=== PATIENT | female | born 1940 | race Caucasian/White ===

== ENCOUNTER 2016-09-17 14:15 | Emergency (ER) | payer OTHER, MEDICARE ==
[~2016-09-17] VITALS: Ht 170.2 cm; Wt 78.0 kg
[~2016-09-17 14:15] MED LIST: FLU VACCINE 0.0.5 ML IM; PREDNISONE10 MG PO; VALTREX1 GM PO; [UNRECOGNIZED DRUG - CODE] SC
--- NOTE | 2016-09-17 14:59 | ED GENERAL ADULT ---
History of Present Illness General Chief Complaint: General Adult Stated Complaint: PT FROM [facility] FOR ?HYPERTENSION Source: patient Exam Limitations: no limitations Vital Signs & Intake/Output Vital Signs & Intake/Output Vital Signs Date Time Temp Pulse Resp B/P Pulse O2 O2 Flow FiO2 Ox Delivery Rate 09/17 1549 148/92 09/17 1422 97.0 98 20 149/94 98 Room Air Allergies Coded Allergies: No Known Allergies (09/17/16) Reconcile Medications Amlodipine Besylate 5 MG TABLET 1 TAB PO DAILY HYPERTENSION Triage Note: PT SIB [facility] FOR HTN. PT STATES SHE STOPPED TAKING HER BP MEDS 6-7 MONTHS AGO BECAUSE SHE FELT FINE Triage Nurses Notes Reviewed? yes Onset: Gradual Duration: better Timing: recent history Severity: moderate Severity Numbers: 5 No Modifying Factors: none HPI: Patient is a 75-year-old female with a past medical history of hypertension who states that approximate 6 months ago patient was prescribed (although patient does not remember the exact medication) pharmacy reconciliation notes that patient was given amlodipine 5 mg for her blood pressure however she decided not to take this and has been unmedicated for 6 months. Patient states that she was seen in urgent care facility today for acute onset of mild sore throat that began yesterday in which the rapid strep was negative however patient was noted to have elevated blood pressure noted to be over 200/100. Patient does state that she woke up with a headache however took Tylenol with relief of headache symptoms. Patient also states for the past few weeks she's been complaining of intermittent dyspnea on exertion. Patient denies currently any fever chills headache blurred vision neck pain neck stiffness, cough hemoptysis or chest pain leg swelling history of DVT or PE. (ROYCE SALGUERO) Past History Travel History Traveled to [place] past 21 day No Medical History Any Pertinent Medical History? see below for history Cardiovascular: hypertension Surgical History Surgical History: non-contributory Psychosocial History What is your primary language Surinamese Tobacco Use: Quit >30 days ago ETOH Use: denies use Illicit Drug Use: denies illicit drug use Family History Hx Contributory? No (ROYCE SALGUERO) Review of Systems Review of Systems Constitutional: Reports: no symptoms. EENTM: Reports: no symptoms. Respiratory: Reports: see HPI, short of breath. Cardiovascular: Reports: no symptoms. GI: Reports: no symptoms. Genitourinary: Reports: no symptoms. Musculoskeletal: Reports: no symptoms. Skin: Reports: no symptoms. Neurological/Psychological: Reports: see HPI, headache. Hematologic/Endocrine: Reports: no symptoms. Immunologic/Allergic: Reports: no symptoms. All Other Systems: Reviewed and Negative (ROYCE SALGUERO) Physical Exam Physical Exam General Appearance: no apparent distress, alert Comments: Well-developed well-nourished person in no acute distress HEENT: Normal EENT exam, extraocular motion intact, no nystagmus. Pupils equally round and reactive to light and accommodation. Nose is atraumatic. External auditory canal and Tympanic membranes clear. Pharynx normal. No swelling or edema. Neck: Supple, no lymphadenopathy, normal range of motion without pain or tenderness Back: Nontender, no CVA tenderness. Cardiovascular: Regular rate and rhythms no murmurs rubs or gallops, normal JVP Respiratory: Chest nontender. No respiratory distress.breath sounds clear to auscultation bilaterally Abdomen: Soft, nontender nondistended, no appreciable organomegaly. Normal bowel sounds. No ascites Extremity: No edema, no calf tenderness to palpation, normal and equal pulses. Neuro: Alert oriented x3, motor sensory normal, cranial nerves II through XII grossly intact. Skin: No appreciable rash on exposed skin, skin is warm and dry. Psych: Mood and affect is normal, memory and judgment is normal. Core Measures ACS in differential dx? No CVA/TIA Diagnosis: No Severe Sepsis Present: No Septic Shock Present: No (ROYCE SALGUERO) Progress Differential Diagnoses I considered the following diagnoses in my evaluation of the patient: [ Hypertensive urgency, hypertensive emergency, hypertension, TIA, CVA, myocardial infarction, CHF, PE, electrolyte abnormality, kidney injury, DVT] Plan of Care: Orders Procedure Date/time Status Telemetry/Coloring Checker 09/17 1507 Active TROPONIN LEVEL 09/17 1507 Complete COMPREHENSIVE METABOLIC PANEL 09/17 1507 Complete CBC WITHOUT DIFFERENTIAL 09/17 1507 Complete B-TYPE NATRIURETIC PEP (BNP) 09/17 1507 Complete EKG 09/17 1507 Active Laboratory Tests 09/17/16 1531: Anion Gap 12, Estimated GFR 49 L, BUN/Creatinine Ratio 9.1, Glucose 121 H, Calcium 9.8, Total Bilirubin 0.6, AST 20, ALT 32, Alkaline Phosphatase 139 H, Troponin I < 0.01, Rhf-S-Syqpzoonnnm Pept 121, Total Protein 7.2, Albumin 4.0, Globulin 3.2, Albumin/Globulin Ratio 1.3, CBC w Diff NO MAN DIFF REQ, RBC 4.80, MCV 88.9, MCH 28.8, RDW 14.4, MPV 8.6, Gran % 72.8, Lymphocytes % 19.2 L, Monocytes % 5.9, Eosinophils % 1.3, Basophils % 0.8, Absolute Granulocytes 5.3, Absolute Lymphocytes 1.4, Absolute Monocytes 0.4, Absolute Eosinophils 0.1, Absolute Basophils 0.1, PUBS MCHC 32.4 L Patient on exam was noted to be no apparent distress and was asymptomatic EKG was unremarkable patient was walking up and down hallway showing no concerns of respiratory distress. Chest x-ray and blood work was unremarkable. Patient was requesting a multiple occasions to leave because she was hungry patient was strongly advised to follow-up with primary care doctor and to his house city clerk. Upon discharge she looks well no apparent distress and will comply with discharge instructions and had no questions (ROYCE SALGUERO) Diagnostic Imaging: Viewed by Me: Radiology Read. CXR Impression: no acute abnormality, no infiltrates Pre-Hospital EKG: SINUS RHYTHM 64 BPM Initial ED EKG: normal intervals, normal p-waves, normal QRS complex, SINUS RHYTHM 71 BPM Comments: PATIENT: WALTER THOMAS PRESENT AGE: 75 PATIENT ACCOUNT NO: [id number] : 42 LOCATION: [facility] ORDERING PHYSICIAN: ROYCE CLARKE SERVICE DATE: 09/17/16 EXAM TYPE: RAD - XRY-CHEST XRAY, PA AND LATERAL EXAMINATION: XR CHEST CLINICAL INFORMATION: Dyspnea on exertion. COMPARISON: None TECHNIQUE: 2 views of the chest were obtained. FINDINGS: Lungs are well expanded and clear. No pulmonary edema, consolidation or pleural effusion. Cardiac silhouette is normal in size. The mediastinal and hilar contours are normal. There is atherosclerotic calcification of the aortic arch. There is suggestion of a small hiatal hernia. Within the thoracic spine, there is multilevel degenerative disc space narrowing and osteophyte formation. There is moderate osteoarthrosis of the acromioclavicular joints. IMPRESSION: 1. No evidence of cardiomegaly or congestive heart failure. 2. Small hiatal hernia. (ROYCE SALGUERO) Departure Departure Disposition: HOME OR SELF CARE Condition: Stable Clinical Impression Primary Impression: Hypertension Secondary Impressions: Dyspnea on exertion Referrals: Britt MEJIA MD, MD,DANIEL (PCP/Family) Additional Instructions: As discussed begin the prescription of amlodipine as directed for the full course. Prescription is waiting at [facility] pharmacy. On Sunday follow-up for your primary care doctor and please establish a city clerk Dr. Mejia to make appointment for further evaluation treatment. If symptoms worsen return to emergency room Departure Forms: Customer Survey General Discharge Information Prescriptions: Current Visit Scripts Amlodipine Besylate 1 TAB PO DAILY #30 TAB (ROYCE SALGUERO) PA/CATTLE FEEDER Co-Sign Statement Statement: ED Attending supervision documentation- x I saw and evaluated the patient. I have also reviewed all the pertinent lab results and diagnostic results. I agree with the findings and the plan of care as documented in the PA's/CATTLE FEEDER's documentation. [] I have reviewed the ED Record and agree with the PA's/CATTLE FEEDER's documentation. [] Additions or exceptions (if any) to the PAs/CATTLE FEEDER's note and plan are summarized below: [] (CANDACE MCDONOUGH,MARIA DE JESUS) Critical Care Note Critical Care Note Critical Care Time: non-applicable (ROYCE SALGUERO)
--- NOTE | 2016-09-17 15:41 | RADIOLOGY REPORT ---
EXAMINATION: XR CHEST CLINICAL INFORMATION: Dyspnea on exertion. COMPARISON: None TECHNIQUE: 2 views of the chest were obtained. FINDINGS: Lungs are well expanded and clear. No pulmonary edema, consolidation or pleural effusion. Cardiac silhouette is normal in size. The mediastinal and hilar contours are normal. There is atherosclerotic calcification of the aortic arch. There is suggestion of a small hiatal hernia. Within the thoracic spine, there is multilevel degenerative disc space narrowing and osteophyte formation. There is moderate osteoarthrosis of the acromioclavicular joints. IMPRESSION: 1. No evidence of cardiomegaly or congestive heart failure. 2. Small hiatal hernia.
[2016-09-17 15:49] VITALS: BP 148/92
[2016-09-17] MEDS ORDERED: AMLODIPINE BESYL5 M1 PO (16:10)
[2016-09-17 16:11] LABS: ABSOLUTE BASOPHIL COUNT 0.1 /CUMM (0.0-0.2); ABSOLUTE EOSINOPHIL COUNT 0.1 /CUMM (0.0-0.7); ABSOLUTE GRANULOCYTE CT 5.3 /CUMM (1.4-6.5); ABSOLUTE LYMPH COUNT 1.4 /CUMM (1.2-3.4); ABSOLUTE MONOCYTE COUNT 0.4 /CUMM (0.10-0.60); BASOPHIL % 0.8 % (0.0-2.0); EOSINOPHIL % 1.3 % (0-5); GRANULOCYTE % 72.8 % (42.2-75.2); HEMATOCRIT 42.7 % (37-47); MEAN CORPUSCULAR HGB 28.8 PG (27.0-31.0); MEAN CORPUSCULAR HGB CONC 32.4 G/DL (33.0-37.0); MEAN CORPUSCULAR VOLUME 88.9 FL (81.0-99.0); MEAN PLATELET VOLUME 8.6 FL (7.4-10.4); PLATELET COUNT 272 /CUMM (130-400); RBC DISTRIBUTION WIDTH 14.4 % (11.5-14.5); WHITE BLOOD CELL COUNT 7.3 /CUMM (4.8-10.8)
== END 2016-09-17 16:44 ==
LOC: ERH 14:15
PROVIDERS: Physician Assistant
DX: I10 Essential (primary) hypertension (principal); R06.00 Dyspnea, unspecified
CPT/HCPCS: 93005; 93010